=== PATIENT | male | born 1955 ===

== ENCOUNTER 2022-06-26 14:20 | Emergency (ER) | payer SELFPAY ==
[~2022-06-26] VITALS: Ht 188 cm; Wt 91.0 kg
[2022-06-26] MEDS ORDERED: METFORMIN (14:32)
[2022-06-26] MEDS ORDERED: ELIQUIS (14:32)
[2022-06-26] MEDS ORDERED: ASPIRIN (14:33)
[2022-06-26] MEDS ORDERED: METOPROLOL (14:33)
[2022-06-26] MEDS ORDERED: PRILOSEC (14:33)
[2022-06-26 16:01] LABS: BASOPHILS % 0.5 % (0.0-2.0); EOSINOPHILS % 1.7 % (0.0-5.0); HEMOGLOBIN. 13.4 g/dL (14.0-18.0); LYMPHOCYTES % 7.3 % (20.0-50.0); MEAN CORPUSCULAR VOLUME 85.8 fL (80.0-94.0); MEAN PLATELET VOLUME 8.7 fl (7.4-10.4); MONOCYTES % 14.7 % (2.0-8.0); NEUTROPHILS % 75.8 % (40.0-76.0); PLATELET 166 x1000/uL (130-400); RED BLOOD CELL COUNT 4.78 mill/uL (4.7-6.1); RED CELL DISTRIBUTION WIDTH 17.2 % (11.6-14.6)
[2022-06-26 16:05] LABS: CHLORIDE 107 mEq/L (98-107)
[2022-06-26 16:18] LABS: T4 FREE 1.09 ng/dL (0.76-1.46)
[2022-06-26 17:49] VITALS: BP 138/96
== END 2022-06-26 18:00 | disposition left against medical advice (07) ==
LOC: ER 14:20
DX: I48.20 Chronic atrial fibrillation, unspecified (principal); I10 Essential (primary) hypertension; E11.9 Type 2 diabetes mellitus without complications; Z79.01 Long term (current) use of anticoagulants; Z79.899 Other long term (current) drug therapy; Z79.84 Long term (current) use of oral hypoglycemic drugs
CPT/HCPCS: 36415; 71045; 80053; 83735; 83880; 84439; 84443; 84484; 85025; 99284